=== PATIENT | female | born 1975 | race African-American/Black ===

== ENCOUNTER 2018-07-07 17:37 | Observation (INO) | payer BC ==
[~2018-07-07] VITALS: Ht 162.6 cm; Wt 74.8 kg
[2018-07-07 18:35] LABS: BASOPHILS # (AUTO) 0.1 (0.0-0.1); BASOPHILS % 0.9 % (0.0-1.0); EOSINOPHILS # (AUTO) 0.1 (0.0-0.4); EOSINOPHILS % 1.3 % (0.0-6.0); HEMOGLOBIN 9.7 g/dL (12.0-16.0); LYMPHOCYTES # (AUTO) 1.8 (1.0-3.2); LYMPHOCYTES % 26.6 % (18.0-39.1); MEAN CORPUSCULAR HEMOGLOBIN 22.1 pg (28-32); MEAN CORPUSCULAR HGB CONC 30.3 g/dL (31-35); MEAN CORPUSCULAR VOLUME 73.1 fL (81-99); MONOCYTES # (AUTO) 0.5 (0.2-0.8); MONOCYTES % 6.5 % (4.4-11.3); NEUTROPHILS # (AUTO) 4.4 (2.1-6.9); NEUTROPHILS % 64.3 % (38.7-80.0); PLATELET COUNT 281 x10e3/uL (140-360); RED BLOOD COUNT 4.38 x10e6/uL (3.6-5.1); RED CELL DISTRIBUTION WIDTH 18.9 % (11.7-14.4)
[2018-07-07] MEDS ORDERED: ASPIRIN 81 MG CHEW TAB PO ONE ×2 (18:45→22:45)
[2018-07-07 18:51] LABS: INR 0.86; PROTHROMBIN TIME 12.5 seconds (11.9-14.5)
[2018-07-07 18:52] LABS: PARTIAL THROMBOPLASTIN TIME 32.6 seconds (23.8-35.5)
--- NOTE | 2018-07-07 18:55 | Diagnostic Imaging Report ---
EXAMINATION: CHEST SINGLE (NOT PORTABLE) INDICATION: ^CHEST PAIN ^[id number] ^1810 ^Y COMPARISON: None FINDINGS: TUBES and LINES: None. LUNGS: Lungs are well inflated. Lungs are clear. There is no evidence of pneumonia or pulmonary edema. PLEURA: No pleural effusion or pneumothorax. HEART AND MEDIASTINUM: The cardiomediastinal silhouette is unremarkable. BONES AND SOFT TISSUES: No acute osseous lesion. Soft tissues are unremarkable. UPPER ABDOMEN: No free air under the diaphragm. IMPRESSION: No acute thoracic abnormality. Signed by: Dr. Chan Daigle M.D. on 07/07/2018 6:51 PM
[2018-07-07 18:59] LABS: ALANINE AMINOTRANSFERASE 12 IU/L (0-55); ALBUMIN 4.6 g/dL (3.5-5.0); ALBUMIN/GLOBULIN RATIO 1.2 (0.8-2.0); ALKALINE PHOSPHATASE 52 IU/L (40-150); ANION GAP 15.8 mmol/L (8-16); BLOOD UREA NITROGEN 7 mg/dL (7-26); BUN/CREATININE RATIO 7 (6-25); CALCIUM 10.1 mg/dL (8.4-10.2); CARBON DIOXIDE 20 mmol/L (22-29); CHLORIDE 107 mmol/L (98-107); CREATINE KINASE 113 IU/L (29-168); EST GLOMERULAR FILTRATION RATE > 60 ML/MIN (60-); GLUCOSE 97 mg/dL (74-118); POTASSIUM 3.8 mmol/L (3.5-5.1); SODIUM 139 mmol/L (136-145)
[2018-07-07 19:09] LABS: CLARITY,URINE HAZY (CLEAR); COLOR,URINE YELLOW (YELLOW)
[2018-07-07 19:10] LABS: BACTERIA,URINE MODERATE /HPF; BILIRUBIN,URINE NEGATIVE (NEGATIVE); EPITHELIAL CELLS,URINE FEW /LPF; KETONES,URINE NEGATIVE (NEGATIVE); LEUKOCYTE ESTERASE ,URINE TRACE (NEGATIVE); NITRITE,URINE NEGATIVE (NEGATIVE); PROTEIN,URINE DIPSTICK NEGATIVE (NEGATIVE); RBC,URINE 0-5 /HPF (0-5); URINE UROBILINOGEN 0.2 mg/dL (0.2 - 1); WBC,URINE (MAN) 0-5 /HPF (0-5)
[2018-07-07] MEDS ORDERED: NITROGLYCERIN 2% OINT 1 GM PKT TOP ONE (22:30)
[2018-07-07] MEDS ORDERED: NITROGLYCERIN 0.4 MG SUBL SL PRN (22:45)
--- OUTSIDE RECORDS SUMMARY | 2018-07-07 22:53 | XMS REPORT | CCD ---
Author Author Auto Generated Organization [facility] Address Unknown Phone Unavailable Care Team Providers Care Crop Or Grain Farmworker Name Role Phone Jesse Anderson CP Unavailable Allergies, Adverse Reactions, Alerts Substance Reaction Status No Known Medication Allergies Active Problem List Condition Effective Dates Status No Chronic Problems Active Medications Medication Instructions Start Date End Date Status midazolam 2 mg=2 mL, Injection, IV, Once, 10/28/2014 10/28/2014 Completed first dose 10/28/14 11:35:00 CDT, stop date 10/28/14 11:35:00 CDT lidocaine 5 mL, Injection, IV, Once, first 10/28/2014 10/28/2014 Completed dose 10/28/14 11:40:00 CDT, stop date 10/28/14 11:40:00 CDT ceFAZolin 2 gm, Soln-IV, IV, Once, first dose 10/28/2014 10/28/2014 Completed 10/28/14 11:36:00 CDT, stop date 10/28/14 11:36:00 CDT fentaNYL 50 mcg=1 mL, Injection, IV, Once, 10/28/2014 10/28/2014 Completed first dose 10/28/14 11:43:00 CDT, stop date 10/28/14 11:43:00 CDT fentaNYL 50 mcg=1 mL, Injection, IV, Once, 10/28/2014 10/28/2014 Completed first dose 10/28/14 11:52:00 CDT, stop date 10/28/14 11:52:00 CDT propofol 200 mg=20 mL, Emulsion, IV, Once, 10/28/2014 10/28/2014 Completed first dose 10/28/14 11:41:00 CDT, stop date 10/28/14 11:41:00 CDT ketorolac 30 mg=1 mL, Injection, IV, Once, 10/28/2014 10/28/2014 Completed first dose 10/28/14 12:09:00 CDT, stop date 10/28/14 12:09:00 CDT Misc Medication 700 mL, Soln-IV, IV, Once, first 10/28/2014 10/28/2014 Completed dose 10/28/14 12:49:00 CDT, stop date 10/28/14 12:49:00 CDT ondansetron 4 mg=2 mL, Injection, IV, Once, 10/28/2014 10/28/2014 Completed first dose 10/28/14 11:56:00 CDT, stop date 10/28/14 11:56:00 CDT dexamethasone 4 mg=1 mL, Injection, IV, Once, 10/28/2014 10/28/2014 Completed first dose 10/28/14 11:57:00 CDT, stop date 10/28/14 11:57:00 CDT ondansetron 4 mg=2 mL, Injection, IV Push, 10/28/2014 10/28/2014 Discontinued q30min PRN for nausea/vomiting, order duration: 2 doses, first dose 10/28/14 12:59:00 CDT, stop date Limited # of times Demerol HCl 12.5 mg=0.5 mL, Injection, IV Push, 10/28/2014 10/28/2014 Discontinued q5min PRN for Pain Mild (1-3), order duration: 4 doses, first dose 10/28/14 12:59:00 CDT, stop date Limited # of times Demerol HCl 12.5 mg=0.5 mL, Injection, IV Push, 10/28/2014 10/28/2014 Discontinued q5min PRN for shivers, order duration: 4 doses, first dose 10/28/14 12:59:00 CDT, stop date Limited # of times morphine 1 mg, IV Push, q5min PRN for Pain 10/28/2014 10/28/2014 Discontinued Moderate (4-6), order duration: 5 doses, first dose 10/28/14 12:59:00 CDT, stop date Limited # of times morphine 2 mg, IV Push, q5min PRN for pain 10/28/2014 10/28/2014 Discontinued severe (7-10), order duration: 5 doses, first dose 10/28/14 12:59:00 CDT, stop date Limited # of times lidocaine 1% 0.5 mL, Injection, Subcutaneous, 10/28/2014 10/28/2014 Completed injectable solution Once, first dose 10/28/14 11:00:00 CDT, stop date 10/28/14 11:00:00 CDT LR 1,000 mL 1,000 mL, IV, 100 mL/hr, start date 10/28/2014 10/28/2014 Discontinued 10/28/14 10:36:00 CDT, For Adults ceFAZolin 2 gm, Soln-IV, IV Piggyback, Once, 10/28/2014 10/28/2014 Completed infuse over 30 minutes, first dose 10/28/14 11:00:00 CDT, stop date 10/28/14 11:00:00 CDT Vital Signs Most recent to oldest [Reference Range]: 1 2 3 Temperature Oral [35.8-37.3 DegC] 36.8 DegC (10/27/2014 10:05:00) Temperature Temporal Artery [36.3-37.8 DegC] 36.2 DegC *LOW* (10/28/2014 12:45:00) 36.5 DegC (10/28/2014 11:04:00) Temperature Temporal Fahrenheit 97.16 (10/28/2014 12:45:00) Peripheral Pulse Rate [55-105 bpm] 74 bpm (10/28/2014 11:04:00) 78 bpm (10/27/2014 10:05:00) Heart Rate Monitored [60-100 bpm] 87 bpm (10/28/2014 13:30:00) 79 bpm (10/28/2014 13:15:00) 86 bpm (10/28/2014 13:05:00) Respiratory Rate [12-20] 14 (10/28/2014 13:30:00) 10 *LOW* (10/28/2014 13:15:00) 12 (10/28/2014 13:05:00) SpO2 [90-100 %] 96 % (10/28/2014 13:30:00) 97 % (10/28/2014 13:15:00) 97 % (10/28/2014 13:05:00) Systolic Blood Pressure [110-120 mmHg] 148 mmHg *HI* (10/28/2014 13:30:00) 153 mmHg *HI* (10/28/2014 13:15:00) 146 mmHg *HI* (10/28/2014 13:05:00) Diastolic Blood Pressure [65-85 mmHg] 97 mmHg *HI* (10/28/2014 13:30:00) 99 mmHg *HI* (10/28/2014 13:15:00) 103 mmHg *HI* (10/28/2014 13:05:00) Mean Arterial Pressure, Cuff 114 mmHg (10/28/2014 13:30:00) 117 mmHg (10/28/2014 13:15:00) 117.3 mmHg (10/28/2014 13:05:00) Height 162 cm (10/28/2014 11:04:00) 162 cm (10/27/2014 10:05:00) Height/Length Dosing 162 cm (10/28/2014 11:04:00) 162 cm (10/27/2014 10:05:00) Height Inches 64 in (10/28/2014 11:04:00) 64 in (10/27/2014 10:05:00) Weight 77.4 kg (10/28/2014 11:04:00) 77.4 kg (10/27/2014 10:05:00) Weight Dosing 77.4 kg (10/28/2014 11:04:00) 77.4 kg (10/27/2014 10:05:00) Weight Pounds 170 lb (10/28/2014 11:04:00) 170 lb (10/27/2014 10:05:00) Body Mass Index 29 kg/m2 (10/28/2014 11:04:00) 29.49 kg/m2 (10/27/2014 10:05:00) Results LABORATORY Most recent to oldest [Reference Range]: 1 FIO2 21 % (10/28/2014 11:04:00) Procedures Procedures Date Related Diagnosis Right Femur Fracture Repair1 1with ruy and screws- 12/2013
--- OUTSIDE RECORDS SUMMARY | 2018-07-07 22:53 | XMS REPORT | Continuity of Care Document ---
Author Author [facility] Interface Address Unknown Phone Unavailable Problems Problem Status Onset Date Classification Date Reported Comments Source Medications Medication Details Route Status Patient Instructions Ordering Provider Order Date Source ondansetron 4 mg=2 mL, Injection, IV Push, q30min PRN for nausea/vomiting, order duration: 2 doses, first dose 10/28/14 12:59:00 CDT, stop date Limited # of times Inactive Martell 10/28/2014 [facility] Demerol HCl 12.5 mg=0.5 mL, Injection, IV Push, q5min PRN for Pain Mild (1-3), order duration: 4 doses, first dose 10/28/14 12:59:00 CDT, stop date Limited # of times Inactive Martell 10/28/2014 [facility] morphine 1 mg, IV Push, q5min PRN for Pain Moderate (4- 6), order duration: 5 doses, first dose 10/28/14 12:59:00 CDT, stop date Limited # of times Inactive Martell 10/28/2014 [facility] Misc Medication 700 mL, Soln-IV, IV, Once, first dose 10/28/14 12:49:00 CDT, stop date 10/28/14 12:49:00 CDT Inactive Roslyn Vang 10/28/2014 [facility] ketorolac 30 mg=1 mL, Injection, IV, Once, first dose 10/28/14 12:09:00 CDT, stop date 10/28/14 12:09:00 CDT Inactive Roslyn Vang 10/28/2014 [facility] dexamethasone 4 mg=1 mL, Injection, IV, Once, first dose 10/28/14 11:57:00 CDT, stop date 10/28/14 11:57:00 CDT Inactive Shanel 10/28/2014 [facility] ondansetron 4 mg=2 mL, Injection, IV, Once, first dose 10/28/14 11:56:00 CDT, stop date 10/28/14 11:56:00 CDT Inactive Shanel 10/28/2014 [facility] fentaNYL 50 mcg=1 mL, Injection, IV, Once, first dose 10/28/14 11:52:00 CDT, stop date 10/28/14 11:52:00 CDT Inactive Roslyn Vang 10/28/2014 [facility] fentaNYL 50 mcg=1 mL, Injection, IV, Once, first dose 10/28/14 11:43:00 CDT, stop date 10/28/14 11:43:00 CDT Inactive Roslyn Vang 10/28/2014 [facility] propofol 200 mg=20 mL, Emulsion, IV, Once, first dose 10/28/14 11:41:00 CDT, stop date 10/28/14 11:41:00 CDT Inactive Roslyn Vang 10/28/2014 [facility] lidocaine 5 mL, Injection, IV, Once, first dose 10/28/14 11:40:00 CDT, stop date 10/28/14 11:40:00 CDT Inactive Roslyn Vang 10/28/2014 [facility] ceFAZolin 2 gm, Soln-IV, IV, Once, first dose 10/28/14 11:36:00 CDT, stop date 10/28/14 11:36:00 CDT Inactive Trey Taj 10/28/2014 [facility] midazolam 2 mg=2 mL, Injection, IV, Once, first dose 10/28/14 11:35:00 CDT, stop date 10/28/14 11:35:00 CDT Inactive Roslyn Vang 10/28/2014 [facility] lidocaine 1% injectable solution 0.5 mL, Injection, Subcutaneous, Once, first dose 10/28/14 11:00:00 CDT, stop date 10/28/14 11:00:00 CDT Inactive Martell 10/28/2014 [facility] ceFAZolin 2 gm, Soln-IV, IV Piggyback, Once, infuse over 30 minutes, first dose 10/28/14 11:00:00 CDT, stop date 10/28/14 11:00:00 CDT Inactive Monica 10/28/2014 [facility] LR 1,000 mL 1,000 mL, IV, 100 mL/hr, start date 10/28/14 10:36:00 CDT, For Adults Inactive [place] 10/28/2014 [facility] Allergies, Adverse Reactions, Alerts Substance Category Reaction Severity Reaction type Status Date Reported Comments Source No Known Medication Allergies drug allergy Allergy [facility] Immunizations Immunization Date Given Site Status Last Updated Comments Source Results Order Name Results Value Reference Range Date Interpretation Comments Source LABORATORY FIO2 21 % 10/28/2014 [facility] Vital Signs Vital Sign Value Date Comments Source Respitory Rate 14 10/28/2014 [facility] Systolic (mm Hg) 148 10/28/2014 [facility] Diastolic (mm Hg) 97 10/28/2014 [facility] Heart Rate 87 10/28/2014 [facility] Diastolic (mm Hg) 99 10/28/2014 [facility] Systolic (mm Hg) 153 10/28/2014 [facility] Respitory Rate 10 10/28/2014 [facility] Heart Rate 79 10/28/2014 [facility] Diastolic (mm Hg) 103 10/28/2014 [facility] Heart Rate 86 10/28/2014 [facility] Respitory Rate 12 10/28/2014 [facility] Systolic (mm Hg) 146 10/28/2014 [facility] Temperature Oral (F) 36.2 Cori 10/28/2014 [facility] Weight 77.4 10/28/2014 [facility] Height 162 cm 10/28/2014 [facility] Weight 29 10/28/2014 [facility] Temperature Oral (F) 36.5 Cori 10/28/2014 [facility] Peripheral Pulse Rate 74 10/28/2014 [facility] Height 162 cm 10/27/2014 [facility] Peripheral Pulse Rate 78 10/27/2014 [facility] Temperature Oral (F) 36.8 Cori 10/27/2014 [facility] Weight 29.49 10/27/2014 [facility] Weight 77.4 10/27/2014 [facility] Encounters Location Location Details Encounter Type Encounter Number Reason For Visit Attending Provider ADM Date DC Date Status Source [facility] Outpatient Jesse Anderson 10/28/2014 10/28/2014 Active [facility] Procedures Procedure Code Date Perfomer Comments Source Right Femur Fracture Repair<sup>1</sup> 1with ruy and screws- 12/2013 [facility]
--- OUTSIDE RECORDS SUMMARY | 2018-07-07 22:53 | XMS REPORT ---
Author Author [facility] Address Unknown Phone Unavailable Care Team Providers Care Sales Project Coordinator Name Role Phone Minerva HARMAN Unavailable Unavailable Problems This patient has no known problems. Allergies, Adverse Reactions, Alerts This patient has no known allergies or adverse reactions. Medications This patient has no known medications. Results Test Description Test Time Test Comments Text Results Atomic Results Result Comments CHEST SINGLE (NOT PORTABLE) 2018-07-07 18:51:00 [place] [id number] Patient Name: PATIENCE MULLINS MR #: [id number] : 1975 Age/Sex: 43/F Req #: [id number] Adm Physician: Ordered by: DEBI HARMAN MD Report #: [id number] Location: ER Room/Bed: Procedure: [id number] DX/CHEST SINGLE (NOT PORTABLE) Exam Date: 07/07/18 Exam Time: 1809 REPORT STATUS: Signed EXAMINATION: CHEST SINGLE (NOT PORTABLE) INDICATION: CHEST PAIN [id number] Y COMPARISON: None FINDINGS: TUBES and LINES: None. LUNGS: Lungs are well inflated. Lungs are clear. There is no evidence of pneumonia or pulmonary edema. PLEURA: No pleural effusion or pneumothorax. HEART AND MEDIASTINUM: The cardiomediastinal silhouette is unremarkable. BONES AND SOFT TISSUES: No acute osseous lesion. Soft tissues are unremarkable. UPPER ABDOMEN: No free air under the diaphragm. IMPRESSION: No acute thoracic abnormality. Signed by: Dr. Chan Ramírez M.D. on 07/07/2018 6:51 PM Dictated By: JUAN RAMÍREZ MD, MD 50 Transcribed By: JOSE on 07/07/181850 COPY TO: DEBI HARMAN MD
[2018-07-07] MEDS: NITROGLYCERIN 2% OINT 1 GM PKT TOP SCH (23:14)
[2018-07-07] MEDS: SODIUM CHLORIDE 0.9% 1000ML 1,000 ML IV SCH (23:31)
[2018-07-07] MEDS: METOPROLOL TARTRATE 25 MG TAB PO SCH (23:31)
[2018-07-07] MEDS: FAMOTIDINE 20 MG TAB PO SCH (23:31)
[2018-07-08] VITALS: BP 149/91
[2018-07-08 01:29] LABS: CREATINE KINASE 102 IU/L (29-168)
[2018-07-08] MEDS: NITROGLYCERIN 2% OINT 1 GM PKT TOP SCH ×2 (03:04→12:00)
[2018-07-08] MEDS ORDERED: ACETAMINOPHEN 325 MG TAB PO PRN (03:15)
[2018-07-08 04:00] VITALS: BP 127/64
[2018-07-08 07:17] LABS: BASOPHILS # (AUTO) 0.1 (0.0-0.1); BASOPHILS % 1.1 % (0.0-1.0); EOSINOPHILS # (AUTO) 0.2 (0.0-0.4); HEMATOCRIT 27.8 % (34.2-44.1); HEMOGLOBIN 8.6 g/dL (12.0-16.0); LYMPHOCYTES # (AUTO) 2.4 (1.0-3.2); LYMPHOCYTES % 41.9 % (18.0-39.1); MEAN CORPUSCULAR HEMOGLOBIN 22.6 pg (28-32); MEAN CORPUSCULAR HGB CONC 30.9 g/dL (31-35); MONOCYTES # (AUTO) 0.5 (0.2-0.8); MONOCYTES % 8.4 % (4.4-11.3); NEUTROPHILS # (AUTO) 2.6 (2.1-6.9); NEUTROPHILS % 44.6 % (38.7-80.0); PLATELET COUNT 232 x10e3/uL (140-360); RED BLOOD COUNT 3.81 x10e6/uL (3.6-5.1); RED CELL DISTRIBUTION WIDTH 18.9 % (11.7-14.4)
[2018-07-08 07:45] VITALS: BP 135/75
[2018-07-08 07:45] LABS: % IRON SATURATION 6 % (15-50); CREATINE KINASE 82 IU/L (29-168); IRON 26 ug/dL (50-170); TOTAL IRON BINDING CAPACITY 434 ug/dL (261-478); TRANSFERRIN 310 mg/dL (180-382)
[2018-07-08 07:57] LABS: ANION GAP 12.8 mmol/L (8-16); BLOOD UREA NITROGEN 7 mg/dL (7-26); BUN/CREATININE RATIO 7 (6-25); CALCIUM 8.8 mg/dL (8.4-10.2); CARBON DIOXIDE 19 mmol/L (22-29); CHLORIDE 109 mmol/L (98-107); CHOL/HDL RATIO 3.8 (3.0-3.6); CHOLESTEROL 195 MD/DL (0-199); CREATININE, SERUM 0.97 mg/dL (0.57-1.11); EST GLOMERULAR FILTRATION RATE > 60 ML/MIN (60-); GLUCOSE 96 mg/dL (74-118); HDL CHOLESTEROL 51 MG/DL (40-60); LDL CHOLESTEROL 127 MG/DL (60-130); POTASSIUM 3.8 mmol/L (3.5-5.1); SODIUM 137 mmol/L (136-145); TRIGLYCERIDES 84 MG/DL (0-149)
--- NOTE | 2018-07-08 08:00 | History and Physical ---
CHIEF COMPLAINT: Patient is a 43-year-old female who comes in with chest pain. HISTORY OF PRESENTING ILLNESS: This is Ms. Coco Quezada who is in usual state of health until the day of admission, the patient woke up and had a chest pain lasting for about 4 hours, described as retrosternal, and the patient pain did not have any radiation, lasted about 4 hours, 5 up to 6 out of intensity, and patient also had some dizziness prior to this episode, came in and was admitted for chest pain, rule out coronary syndrome, and also for hypertension. PAST MEDICAL HISTORY: Noncontributory. SURGICAL HISTORY: History of orthopedic surgery on the femur. No other significant history. REVIEW OF SYSTEMS: Positive for chest pain. No shortness of breath. No nausea, vomiting, diarrhea. No constipation, no rectal bleeding. No hematochezia, no hematemesis either. No diplopia, no blurry vision. No paresthesias, no hyperesthesias, and also no focal weakness noted. MEDICATIONS AT HOME: Does not take any medications. SOCIAL HISTORY: No ETOH, no IV drug abuse, and no history of smoking either. FAMILY HISTORY: Significant for coronary artery disease in mother who had a possible CT at 40 years of age, otherwise noncontributory. PHYSICAL EXAMINATION: VITAL SIGNS: Temperature is 98.3, pulse of 78. When the patient came in, her blood pressure was 166/98 with 100% pulse oximetry. HEENT: Normocephalic, atraumatic. Pupils are reactive to light and accommodation. CVS: S1 and S2 normal. Regular rate and rhythm. ABDOMEN: Nontender, nondistended. EXTREMITIES: No clubbing, no cyanosis, and no edema. LABORATORY VALUES: Patient's white count of 6.89, hemoglobin of 9.7, hematocrit of 32.0 with MCV of 73.1, MCH of 22.1. Chemistries: Sodium of 139, potassium of 3.8, BUN 7, creatinine of 1.0. Coags were normal. Urine was essentially normal except for moderate bacteria. EKG shows normal sinus rhythm and nonspecific ST-T changes, no STEMI present. ASSESSMENT: Chest pain. Given the factor of heart disease in the family and hypertension, will keep the patient in, rule out cardiac disease. Consult Dr. Aparicio, cardiology. Patient currently is started on fluids, metoprolol 12.5 mg twice a day, aspirin 81 mg and also on Nitropaste at this time. Troponins are trended to be negative so far. Will continue monitoring the patient, and possible stress test in-house or out to Dr. Aparicio. Further recommendations per clinical course. Job#: [id number]
--- NOTE | 2018-07-08 08:00 | NUR ---
recvd pt, pt resting in bed. dr colvin on unit. vs stable. will continue to monitor.
[2018-07-08 08:08] LABS: FREE THYROXINE INDEX 2.2998 (1.4-3.8); THYROID STIMULATING HORMONE 2.015 uIU/mL (0.350-4.940)
[2018-07-08 09:00] VITALS: BP 135/75
[2018-07-08] MEDS ORDERED: ASPIRIN 81 MG ENTERIC COATED PO SCH (09:00)
[2018-07-08] MEDS: SODIUM CHLORIDE 0.9% 1000ML 1,000 ML IV SCH (10:23)
[2018-07-08] MEDS: FAMOTIDINE 20 MG TAB PO SCH (10:23)
[2018-07-08] MEDS: METOPROLOL TARTRATE 25 MG TAB PO SCH (10:23)
[2018-07-08 11:30] VITALS: BP 138/90
--- NOTE | 2018-07-08 13:06 | NUR ---
pt off unit for stress
--- NOTE | 2018-07-08 13:45 | Consultation ---
DATE OF CONSULTATION: July 08, 2018 REASON FOR CONSULTATION: Chest pain. This is a 43-year-old male with no medical history. Patient presents to [facility] ER with the complaints of chest pain prior to admission. Cardiology was consulted to evaluate the patient. Patient was seen in the room in no acute distress. Reports yesterday while talking to a family friend started having some chest pain, sharp in nature, retrosternal with some radiation to the left shoulder with dizziness. Reports symptoms lasted for about 2-4 hours. Decided to come to the hospital for further evaluation. Reports this is the first time this has happened. Does report a family history of early CAD. Mother at the age of 41 with AZ. Currently, the patient is without any chest pain, any shortness of breath, any orthopnea, any PND. PAST MEDICAL HISTORY: Denies any medical history. PAST SURGICAL HISTORY: Reports right femur fracture about 4 years ago. SOCIAL HISTORY: She is . 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 Denies any alcohol use, tobacco use. FAMILY HISTORY: Mother is alive. However, had an AZ at the age of 40. Father alive with a history of diabetes. MEDICATIONS: The patient reports does not take any medications at home. ALLERGIES: NO KNOWN ALLERGIES. REVIEW OF SYSTEMS GENERAL: Denies any weight changes, fatigue, weakness, fevers, night sweats, chills. SKIN: No rashes, sores, lumps, moles. HEENT: Denies any nausea, vomiting, any vision changes, blurred vision, double vision, any tinnitus, vertigo, earaches, any stuffiness, sneezing, epistaxis. Denies any hoarseness, sore throat, swollen neck, stiff neck. CARDIAC: Positive for chest pain as above. Denies any palpitations. Positive for dyspnea on exertion. Denies any orthopnea, any PND or any lower extremity edema. RESPIRATORY: Positive for shortness of breath with exertion. Denies any wheezing, coughing, hemoptysis. GI: Reports good appetite. Denies any nausea, vomiting, diarrhea, constipation, any melena, or hematochezia. URINARY: Denies any frequency, urgency, hematuria, or dysuria. VASCULAR: Denies any lower extremity edema, claudication, varicose veins. MUSCULOSKELETAL: Denies any muscle weakness. Does have, however, some right hip pain on occasion. Denies any lower extremity swelling. NEUROLOGIC: Denies any numbness or tingling. However, did have episode of dizziness with chest pain yesterday. However, denies any fainting, blackouts or seizures. HEMATOLOGY: Positive for anemia during . ENDOCRINE: Denies any heat or cold intolerance, any polyuria, polydipsia, polyphagia. PHYSICAL EXAMINATION VITALS: Height 64 inches, weight 165 pounds, BMI 28, temperature 97.1, pulse 75, respiratory rate 20, blood pressure 138/90. GENERAL: Reliable informant. No acute distress. Appears stated age. SKIN: No rashes, bruises noted. HEENT: Normocephalic. Pupils equal and reactive. Extraocular motor intact. Trachea midline. No JVD. Oral mucosa pink. No carotid bruits. HEART: Regular rate and rhythm. No gallops. No clicks. PMI in the 4th intercostal space. LUNGS: Bilateral breath sounds. Clear to auscultation. ABDOMEN: Soft, nontender and nondistended. No organomegaly noted. MUSCULOSKELETAL: Good muscle strength throughout. VASCULAR: Plus 2 bilateral radial pulses. Plus 2 DP and PT pulses. NEUROLOGIC: Cranial nerves II-XII seem intact. LABS: White count 7, hemoglobin 8.6, hematocrit 27, MCV 73, MCH 22, and platelets 232,000. Sodium 137, potassium 3.8, chloride 109, bicarb 17, BUN 7, creatinine 0.9. Troponin less than 0.001 times 3. BNP less than 10. LDL 127, HDL 51. TSH of 2. Chest x-ray shows no acute abnormalities. EKG is normal sinus rhythm. ASSESSMENT AND PLAN 1. Chest pain. 2. Microcytic anemia. 3. Hypertension. PLAN: Patient presents with chest pain for several hours unrelieved on its own. Enzymes negative times 3. However, the patient with very strong family history of early CAD and AZ with mother at the age of 40. Patient wishes for ischemia evaluation. Will go ahead and do a stress test today to further evaluate. Also, echo has been done. Will be read by cardiology attending. Regarding the patient's anemia, will defer to primary service for workup. Thank you very much for this consult. Further recommendations as clinical course progresses. DICTATED BY TERRA MCCLELLAND NP Job#: [id number] [place]
--- NOTE | 2018-07-08 14:06 | Cardiology Report ---
DATE OF STUDY: July 08, 2018 CARDIAC STRESS TEST TECHNICAL DETAILS: The protocol is Erik with target heart rate at 152 per minute. RESULTS 1. Patient exercised for 9 minutes and 11 seconds. 2. Heart rate increased from 82 to 156 per minute. 3. Test stopped because patient achieved her heart rate. 4. No chest pain. 5. Blood pressure increased from 120/80 to 184/95. 6. Minimal ST changes that are approaching almost 1 millivolt, but upsloping at peak exercise. IMPRESSION: Negative cardiac stress test, limitations of negative cardiac stress test are discussed and explained. Job#: [id number] TA
--- NOTE | 2018-07-08 14:46 | NUR ---
SOCIAL WORK INITIAL ASSESSMENT Felt Machine Mechanic to bedside to discuss plan of care with patient/family. CM/SW role and care transitions discussed. Anticipated discharge plan discussed along with duration of care. CM/SW discussed patients right to make decisions in care. CM/SW work hours given. 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 Name and number was also written on the patients whiteboard. Patient verbalized understanding of discussion. CM will follow-up with ongoing discharge and transition of care needs.
[2018-07-08 15:34] VITALS: BP 125/79
[2018-07-08 15:39] LABS: CREATINE KINASE 83 IU/L (29-168)
--- NOTE | 2018-07-08 18:55 | NUR ---
PT HAS BEEN STABLE, ALL CARDIAC MARKERS NEGATIVE. PER DR SAUCEDA ON UNIT, PT OK TO DC AND FOLLOW UP OUTPATIENT. PT TO HAVE DOSE OF METOPROLOL BEFORE DC, UPDATED NIGHT NURSE FOR MED AND PAPERWORK.
== END 2018-07-08 19:46 | disposition home or self-care (01) ==
LOC: ER 17:37 → ERHOLD 22:51 → IMCU 07-08 00:03
PROVIDERS: ADMIT Family Medicine; ATTEND Family Medicine
DX: R07.9 Chest pain, unspecified (principal); D50.9 Iron deficiency anemia, unspecified; I10 Essential (primary) hypertension; Z82.49 Family history of ischemic heart disease and other diseases of the circulatory system
CPT/HCPCS: 36415 ×2; 71045; 80048; 80053; 80061; 81001; 81025; 82550 ×2; 82553 ×2; 83540; 83880; 84436; 84443; 84466; 84479; 84484 ×2; 85025 ×2; 85610; 85730; 93005; 93017; 93306; 99284; G0378 ×2; J7030 ×2